=== PATIENT | female | born 1990 | race Asian ===

== ENCOUNTER 2018-04-08 12:29 | Emergency (ER) | payer OTHER ==
[2018-04-08] MEDS ORDERED: NS 1,000 ML IV ONE (14:05)
--- NOTE | 2018-04-08 14:12 | EDPHY ---
H & P Stated Complaint: R lower abd pain since this am Time Seen by Provider: 04/08/18 13:42 HPI/ROS: CHIEF COMPLAINT: Right lower quadrant pain HISTORY OF PRESENT ILLNESS: 27-year-old female presents with right lower quadrant pain. Onset of pain this morning, gradually increasing since then. The pain became severe and was associated with nausea. After ibuprofen, the pain is currently mild. No other associated symptoms. No alleviating or aggravating factors. No prior similar symptoms. Not sexually active. REVIEW OF SYSTEMS: complete 10 point ROS reviewed and is negative except for the noted elements in the HPI - Personal History LMP (Females 10-55): 1-7 Days Ago - Medical/Surgical History Hx Asthma: No Hx Chronic Respiratory Disease: No Hx Diabetes: No Hx Cardiac Disease: No Hx Renal Disease: No Hx Cirrhosis: No Hx Alcoholism: No Hx HIV/AIDS: No Hx Splenectomy or Spleen Trauma: No Other PMH: denies - Social History Smoking Status: Never smoked - Physical Exam Exam: General Appearance: Alert, pleasant Eyes: Pupils equal and round, no conjunctival pallor or injection ENT, Mouth: Mucous membranes moist Neck: Normal inspection Respiratory: Lungs are clear to auscultation Cardiovascular: Regular rate and rhythm Gastrointestinal: Abdomen is soft, right lower quadrant tenderness Neurological: A&O, nonfocal, normal gait Skin: Warm and dry Extremities: Normal inspection Psychiatric: Mood and affect normal Constitutional: Initial Vital Signs Temperature (C) 37.0 C 04/08/18 12:33 Heart Rate 80 04/08/18 12:33 Respiratory Rate 18 04/08/18 12:33 Blood Pressure 100/60 04/08/18 12:33 O2 Sat (%) 97 04/08/18 12:33 O2 Delivery Mode Room Air Allergies/Adverse Reactions: No Known Allergies Allergy (Unverified 04/08/18 12:33) Home Medications: Medication Instructions Recorded NK [No Known Home Meds] 04/08/18 Medical Decision Making - Diagnostics Imaging Results: Pelvic/appendix ultrasound read by the radiologist are normal. Imaging: Discussed imaging studies w/ crew caller Radiologist ED Course/Re-evaluation: This patient presents with right lower quadrant pain. Stat test is negative and the patient has never been sexually active. Pelvic ultrasound is normal, no evidence of ovarian cyst/torsion. The appendix is not visualized on ultrasound. Results were discussed with the patient. She continues to have right lower quadrant tenderness. I advised CT scan for further evaluation. However the patient declines. She clearly understands that she may have appendicitis and accepts the risks. She will return for worsening pain or any concerns. Differential Diagnosis: Differential diagnosis includes though it is not limited to appendicitis, cholecystitis, diverticulitis, pyelonephritis, bowel perforation, small bowel obstruction. - Data Points Laboratory Results: Laboratory Results 04/08/18 13:34 04/08/18 13:34 Medications Given: Discontinued Medications Sodium Chloride (Ns) 1,000 mls @ 0 mls/hr IV ONCE ONE; Wide Open PRN Reason: Protocol Stop: 04/08/18 14:06 Last Admin: 04/08/18 14:12 Dose: 1,000 mls Departure - Departure Disposition: Home, Routine, Self-Care Clinical Impression: Abdominal pain Qualifiers: Abdominal location: right lower quadrant Qualified Code(s): R10.31 - Right lower quadrant pain Condition: Good Instructions: Acute Abdominal Pain (ED) Additional Instructions: I think that you may have appendicitis. I advised you to have a CT scan to further evaluate the possibility of appendicitis. Return in 12-24 hours for recheck. Return sooner if the pain worsens or if you have any other concerns. Clear liquid diet. Tylenol as needed for pain. Referrals: Red Mayes MD [Medical Doctor] - 1 day without fail
[2018-04-08 14:36] LABS: PLATELET COUNT 203 10^3/uL (150-400)
[2018-04-08] MEDS ORDERED: IOPAMIDOL (ISOVUE-300) 100 ML BTL ONE (15:57)
[2018-04-08 16:33] VITALS: BP 115/78
== END 2018-04-08 16:33 | disposition home or self-care (01) ==
DX: R10.31 Right lower quadrant pain (principal); E86.9 Volume depletion, unspecified
CPT/HCPCS: Q9967